=== PATIENT | female | born 2000 | race Caucasian/White ===

== ENCOUNTER 2024-01-06 15:17 | Emergency (ER) | payer OTHER, MEDICARE ==
[~2024-01-06] VITALS: Ht 152.4 cm; Wt 61.2 kg
[2024-01-06 15:29] VITALS: TEMP 98.1
[2024-01-06 15:46] LABS: BASOPHILS % 0.4 % (0.0-1.0); EOSINOPHILS % 0.4 % (0.0-6.0); HEMATOCRIT 34.3 % (34.2-44.1); HEMOGLOBIN 11.2 g/dL (12.0-16.0); LYMPHOCYTES # (AUTO) 1.5 (1.0-3.2); LYMPHOCYTES % 22.2 % (18.0-39.1); MEAN CORPUSCULAR HEMOGLOBIN 31.9 pg (28-32); MEAN CORPUSCULAR HGB CONC 32.7 g/dL (31-35); MEAN CORPUSCULAR VOLUME 97.7 fL (81-99); MONOCYTES # (AUTO) 0.5 (0.2-0.8); NEUTROPHILS # (AUTO) 4.8 (2.1-6.9); NEUTROPHILS % 69.7 % (38.7-80.0); PLATELET COUNT 249 x10e3/uL (140-360); RED BLOOD COUNT 3.51 x10e6/uL (3.6-5.1); WHITE BLOOD COUNT 6.88 x10e3/uL (4.8-10.8)
[2024-01-06 15:50] LABS: CLARITY,URINE CLOUDY (CLEAR); COLOR,URINE YELLOW (YELLOW)
[2024-01-06 15:51] LABS: BILIRUBIN,URINE 1+ (NEGATIVE); GLUCOSE, URINE NEGATIVE (NEGATIVE); KETONES,URINE 2+ (NEGATIVE); LEUKOCYTE ESTERASE ,URINE 1+ (NEGATIVE); NITRITE,URINE NEGATIVE (NEGATIVE); PH,URINE 6.5 (5 - 7); PROTEIN,URINE DIPSTICK TRACE (NEGATIVE); URINE UROBILINOGEN 1 mg/dL (0.2 - 1)
[2024-01-06] MEDS: SODIUM CHLORIDE 0.9% 1000ML 1,000 ML IV STA (15:51)
[2024-01-06 16:00] LABS: WBC,URINE (MAN) 21-50 /HPF (0-5)
[2024-01-06 16:01] LABS: BACTERIA,URINE MODERATE /HPF; EPITHELIAL CELLS,URINE MODERATE /LPF; MUCUS,URINE MANY (RARE)
[2024-01-06 16:04] LABS: ALBUMIN 4.2 g/dL (3.5-5.0); ALBUMIN/GLOBULIN RATIO 1.2 (0.8-2.0); ANION GAP 12.5 mmol/L (8-16); BILIRUBIN,TOTAL 0.3 mg/dL (0.2-1.2); CALCIUM 9.6 mg/dL (8.4-10.2); CREATININE, SERUM 0.62 mg/dL (0.57-1.11); POTASSIUM 3.5 mmol/L (3.5-5.1); TOTAL PROTEIN 7.6 g/dL (6.5-8.1)
[2024-01-06 16:29] LABS: HCG,QUANTITATIVE 120031.41 mIU/mL (0-10)
[2024-01-06 18:00] VITALS: PULSE 78; RESP 16; O2SAT 100
[2024-01-06] MEDS ORDERED: CEFDINIR300 MG PO (18:13)
[2024-01-06 18:27] VITALS: TEMP 98.2
== END 2024-01-06 19:07 | disposition home or self-care (01) ==
LOC: ER 15:23
DX: O20.0 Threatened abortion (principal)
CPT/HCPCS: 36415; 76801; 80053; 81001; 84702; 85025; 99284; J7030